=== PATIENT | female | born 2000 | race Hispanic/Latino ===

== ENCOUNTER 2024-08-01 08:18 | Emergency (ER) | payer SELFPAY ==
[~2024-08-01] VITALS: Ht 157.5 cm; Wt 51.7 kg
[2024-08-01] MEDS: 0.9%NACL 1000ML 1,551 ML IV ONE (08:45)
--- NOTE | 2024-08-01 08:45 | ERN ---
ED Note History of Present Illness Stated Complaint: FEVER, ABD PAIN Chief Complaint: Abdominal Pain Time Seen by MD: 08:29 Dictation: This is a case of 23-year-old female with past medical history of renal stones who was brought to the ER by EMS with the complaints of fever, chills, generalized body pain since yesterday night. She states that she has started experiencing fever with chills, headache, dizziness, generalized body aches and diffuse abdominal pain associated with nausea since yesterday night. She states that she has experienced similar symptoms in the past when she had renal stones. She denies chest pain, palpitations, cough, sore throat, burning sensation when urinating/increased frequency of urination, diarrhea/constipation, abnormal vaginal discharge or rashes. Her last menstrual period was on July 23, 2024. Allergies: Coded Allergies: No Known Drug Allergies (Unverified Allergy, Unknown, 08/01/24) Home Meds Active Scripts Amoxicillin/Potassium Clav (Amox Tr-K Clv 875-125 mg Tab) 875 Mg-125 Mg Tablet, 1 TAB PO BID for 10 Days, #20 TAB 0 Refills Prov:CALLY ESCALONA MD 08/01/24 Past Medical History Past Medical History: No Pertinent History Surgical History: None Review of System Dictation ROS Constitutional: No appetite loss, fevers, chills , No night sweats, No weakness, fatigue Eye: No vision change, No redness, pain or discharge ENT: No hearing loss, ear pain or discharge, No nose bleeds, No sore throat, Neck: No swelling. pain or stiffness Respiratory: No cough, shortness of breath, wheezing Cardiovascular: No chest pain,, palpitations, dyspnea, No edema Gastrointestinal: Diffuse abdominal pain, No nausea, vomiting, No diarrhea, constipation Genitourinary: No painful urination, No blood in urine, No urinary incontinence, No frequency or urgency Musculoskeletal: No joint pain, muscle pain, swelling or stiffness Neurological: No numbness, tingling, No weakness, tremors or seizures Psychiatric: : No depression, No anxiety, No sleep disturbance, No Memory changes Lymphatic: No easy bruising, No bleeding tendencies , No swollen lymph nodes A 13-point Review of Systems was assessed, all of which are negative except for HPI or as indicated above. Initial Vital Sign VS Vital Signs Date Time Temp Pulse Resp B/P (MAP) Pulse Ox O2 Delivery O2 Flow Rate FiO2 08/01/24 08:21 102.4 120 20 113/67 97 Room Air 0 08/01/24 10:08 21 Physical Exam Dictation General: Alert & Oriented, No acute distress. EENT: No conjunctival redness or discharge noted Tympanic membranes are clear, Normal hearing, Oral mucosa is moist, No pharyngeal erythema, No nasal discharge, No oral lesions. Neck: Non-tender, No jugular vein distention, No lymphadenopathy, No thyromegaly, Supple. Respiratory: Lungs are clear to auscultation, Respirations are non-labored, Breath sounds are equal, No chest wall tenderness, _. Cardiovascular: Normal rate, Normal rhythm, No murmur, Good pulses equal in all extremities, Normal peripheral perfusion, No edema. Gastrointestinal: Soft, moderate tenderness in right upper quadrant, epigastric and pelvic region, Non-distended, Normal bowel sounds, No organo megaly, _. Musculoskeletal: Normal range of motion, Normal strength, No tenderness, No swelling, No deformity, Normal gait. Integumentary: Warm, Dry, [place], Intact, No pallor, No rash. Neurologic: Alert, Oriented x4, Normal sensory, No focal defects Psychiatric: Cooperative, Appropriate mood & affect, Normal judgement, Non- suicidal. Results (Laboratory/Radiology) Laboratory/Radiology Laboratory Tests Test 08/01/24 09:00 08/01/24 09:16 08/01/24 09:50 Urine Color YELLOW (YELLOW) Urine Appearance CLOUDY (CLEAR) H Urine pH 6.0 (5.0-8.0) Urine Specific [place] 1.014 (1.001-1.031) Urine Protein 30 mg/dL (NEGATIVE) H Urine Glucose (UA) NEGATIVE mg/dL (NEGATIVE) Urine Ketones 5 mg/dL (NEGATIVE) H Urine Occult Blood SMALL (NEGATIVE) H Urine Nitrate 2+ (NEGATIVE) H Urine Bilirubin NEGATIVE mg/dL (NEGATIVE) Urine Urobilinogen 0.2 mg/dL (0.2-1.0) Urine Leukocyte Esterase 500 Edson/uL (NEGATIVE) H Urine RBC 2-5 /HPF (0-1) H Urine WBC TNTC /HPF (0-1) H Urine WBC Clumps (Auto) FEW /HPF (0-1) Urine Squamous Epithelial Cells FEW /HPF (0-2) Urine Bacteria MOD /HPF (None Seen) Urine HCG, Qualitative NEGATIVE (NEGATIVE) White Blood Count 12.1 K/uL (4.8-10.8) H Red Blood Count 3.57 MIL/uL (4.00-5.50) L Hemoglobin 10.1 g/dL (12.0-16.0) L Hematocrit 31.0 % (36-48) L Mean Corpuscular Volume 86.8 fL (79-99) Mean Corpuscular Hemoglobin 28.3 pg (27.0-33.0) Mean Corpuscular Hemoglobin Concent 32.6 g/dL (32.0-36.0) Red Cell Distribution Width 14.8 % (11.0-15.5) Platelet Count 155 K/uL (130-400) Mean Platelet Volume 11.1 fL (7.5-10.5) H Immature Granulocyte % (Auto) 0.6 % (0-1) Neutrophils (%) (Auto) 89.8 % (40.0-77.0) H Lymphocytes (%) (Auto) 4.6 % (21.0-51.0) L Monocytes (%) (Auto) 4.7 % (3.0-13.0) Eosinophils (%) (Auto) 0.1 % (0.0-8.0) Basophils (%) (Auto) 0.2 % (0.0-5.0) Neutrophils # (Auto) 10.9 K/uL (1.8-7.7) H Lymphocytes # (Auto) 0.6 K/uL (1.0-4.8) L Monocytes # (Auto) 0.6 K/uL (0.1-1.0) Eosinophils # (Auto) 0.01 K/uL (0.00-0.70) Basophils # (Auto) 0.03 K/uL (0.00-0.20) Absolute Immature Granulocyte (auto 0.07 K/uL (0-1) Nucleated Red Blood Cells 0.0 % (0.0-0.19) White Cell Morphology Comment See comments Sodium Level 141 mmol/L (136-145) Potassium Level 3.1 mmol/L (3.5-5.1) L Chloride Level 106 mmol/L (101-111) Carbon Dioxide Level 23 mmol/L (21-32) Blood Urea Nitrogen 5 mg/dL (7-18) L Creatinine 0.6 mg/dL (0.5-1.0) Glomerular Filtration Rate Calc 130 mL/min (>90) Random Glucose 115 mg/dL (70-105) H Lactic Acid Level 1.5 mmol/L (0.8-2.5) Total Calcium 7.4 mg/dL (8.5-10.1) L Total Bilirubin 0.9 mg/dL (0.2-1.0) Direct Bilirubin 0.2 mg/dL (0.0-0.3) Aspartate Amino Transf (AST/SGOT) 31 U/L (10-37) Alanine Aminotransferase (ALT/SGPT) 28 U/L (12-78) Alkaline Phosphatase 82 U/L (50-136) Total Creatine Kinase 51 U/L (21-232) Troponin I High Sensitivity < 4 ng/L (4-50) L Total Protein 6.0 g/dL (6.0-8.3) Albumin 2.8 g/dL (3.5-5.0) L Influenza Type A Antigen Negative For Type A Influenza Type B Antigen Negative For Type B SARS-CoV-2 Antigen (Rapid) PRESUMPTIVE NEGATIVE CT Scan Comment: PROCEDURE: ABD PEL WO - CT ABDOMEN/PELVIS W/O CONTRAST CT ABDOMEN/PELVIS W/O CONTRAST REASON: DIFFUSE ABDMONIAL PAIN COMPARISON: None. FINDINGS: Lung bases are clear. There are no focal liver lesions. There are normal-appearing kidneys.. Spleen and pancreas appear unremarkable. The gallbladder appears normal as well. Bowel loops appear unremarkable. This includes normal appearance of the appendix There is no evidence of free fluid or intraperitoneal air. There are no focal fluid collections. Aorta and retroperitoneum appear normal as do pelvic soft tissue structures. The anterior abdominal wall is intact. Osseous structures appear unremarkable. IMPRESSION: 1. Negative noncontrast CT abdomen and pelvis. ED Course ED Course Orders Procedure Category Date Status Time Cbc With Differential LAB 08/01/24 Complete 08: Blood Cult MAYA 08/01/24 In Process 08:29 Urinalysis Profile LAB 08/01/24 Complete 08:29 Culture Urine MAYA 08/01/24 Complete 08:29 0.9%Nacl 1000ml (Ns PHA 08/01/24 Complete 1000ml) 08:30 Creatine Kinase, Total LAB 08/01/24 Complete 08:29 Troponin I High LAB 08/01/24 Complete Sensitivity 08:29 Lactic Acid LAB 08/01/24 Complete 08:29 Basic Metabolic Panel LAB 08/01/24 Complete 08:29 ,Urine Test LAB 08/01/24 Complete 08:29 Covid19 (Sars Antigen LAB 08/01/24 Complete Rapid) 08:32 Influenza Type A & B, LAB 08/01/24 Complete Rapid 08:32 Ct Abdomen/Pelvis W/O CT 08/01/24 Resulted Contrast 08:41 Acetaminophen 500mg PHA 08/01/24 Complete Tab (Tylenol 500mg T 09:00 Hepatic Function Panel LAB 08/01/24 Complete 08:46 Ceftriaxone 1g Vial PHA 08/01/24 Complete (Rocephine 1g Inj) 11:00 Current Medications Medications (Trade) Dose Ordered Sig/Ginny Route PRN Reason Start Time Stop Time Status Last Admin Dose Admin Acetaminophen (TYLenol 500MG TAB) 500 mg ONCE ONCE PO 08/01/24 09:00 08/01/24 09:01 DC 08/01/24 08:46 Ceftriaxone Sodium (ROCEphine 1G INJ) 1 gm ONCE ONCE IVPB 08/01/24 11:00 08/01/24 11:01 DC 08/01/24 11:02 Sodium Chloride 1,551 ml @ 517 mls/hr ONCE ONCE IV 08/01/24 08:30 08/01/24 11:29 DC 08/01/24 08:45 Vital Signs Date Time Temp Pulse Resp B/P (MAP) Pulse Ox O2 Delivery O2 Flow Rate FiO2 08/01/24 11:30 98.4 84 16 118/64 98 Room Air* 0 08/01/24 10:08 99.0 92 18 112/59 98 Room Air* 0 08/01/24 08:21 102.4 120 20 113/67 97 Room Air 0 Medical Decision Making MDM MDM Potential differential diagnoses include: Gastritis Cholecystitis Influenza Pyelonephritis Assessment: I will order a CBC and CMP and administer medications according to the patient's complaint. Will order 1 Liter of LR for adequate hydration I will re-evaluate the patient after treatment and diagnostic exams have return ed to determine whether they require further testing, can be safely discharged home, or need admission for further treatment and evaluation. Given the social determinants of health affecting care, including literacy, access to medical care, prescription drug management, and [id number] drugs, I will ensure that treatment plans are tailored accordingly. Revaluation : Patient is alert and oriented. She states that she feels better. Labs WBC 12.1, urinalysis positive for leukocyte esterase indicating an infection. LFT, troponin, TCK levels are normal. CT abdomen/pelvis resulted in no acute findings. Disposition:Patient is being discharged home with Amoxiclav 875/125mg PO BID for 10 days Advised to Follow up with PCP within 2-3 days Drink plenty of fluids especially water Avoid, alcohol and spicy foods Complete antibiotic course as directed Take [id number] medications like acetaminophen and ibuprofen p.r.n. for pain Monitor for symptoms like increased fever, severe pain especially in the lower abdomen or back, blood in urine, difficulty urinating or painful urination, foul-smelling urine, shortness of breath and seek emergent medical attention in such scenario DX & DISP Disposition: Discharge Departure Impression: Primary Impression: UTI (urinary tract infection) with pyuria Additional Impression: Pyelonephritis Critical Time: 30 minutes Condition: Stable Scripts Amoxicillin/Potassium Clav (Amox Tr-K Clv 875-125 mg Tab) 875 Mg-125 Mg Tablet 1 TAB PO BID for 10 Days, #20 TAB 0 Refills Prov: CALLY ESCALONA MD 08/01/24 Referrals: NONE (PCP) ATTESTATION BY PHYSICIAN I have seen and examined the patient. I reviewed the documentation, medical decision making, and treatment plan as noted by the resident above. I agree with the findings and plan of care. KATERINE RENEE PRIYANKA MD Aug 01, 2024 08:45 KATERINE RENEE DO Aug 02, 2024 07:40
[2024-08-01] MEDS: acetaMINOPHEN 500 MG TABLET PO ONE (08:46)
[2024-08-01 09:11] LABS: APPEARANCE,URINE CLOUDY (CLEAR); BILIRUBIN,URINE NEGATIVE (NEGATIVE); COLOR,URINE YELLOW (YELLOW); GLUCOSE, URINE (UA) NEGATIVE (NEGATIVE); KETONES,URINE 5 mg/dL (NEGATIVE); LEUKOCYTE ESTERASE ,URINE 500 Leu/uL (NEGATIVE); NITRATE,URINE 2+ (NEGATIVE); OCCULT BLOOD,URINE SMALL (NEGATIVE); PROTEIN,URINE 30 mg/dL (NEGATIVE); UROBILINOGEN,URINE 0.2 mg/dL (0.2-1.0)
[2024-08-01 09:13] LABS: ADD UA MICROSCOPIC YES
[2024-08-01 09:14] LABS: HCG,QUALITATIVE URINE NEGATIVE (NEGATIVE)
[2024-08-01 09:26] LABS: BASOPHILS # (AUTO) 0.03 K/uL (0.00-0.20); BASOPHILS % (AUTO) 0.2 % (0.0-5.0); EOSINOPHILS # (AUTO) 0.01 K/uL (0.00-0.70); EOSINOPHILS % (AUTO) 0.1 % (0.0-8.0); IMMATURE GRANULOCYTE ABSOLUTE 0.07 K/uL (0-1); LYMPHOCYTES # (AUTO) 0.6 K/uL (1.0-4.8); LYMPHOCYTES % (AUTO) 4.6 % (21.0-51.0); MEAN CORPUSCULAR HEMOGLOBIN 28.3 pg (27.0-33.0); MEAN CORPUSCULAR HGB CONC 32.6 g/dL (32.0-36.0); MEAN CORPUSCULAR VOLUME 86.8 fL (79-99); MONOCYTES # (AUTO) 0.6 K/uL (0.1-1.0); MONOCYTES % (AUTO) 4.7 % (3.0-13.0); NEUTROPHILS # (AUTO) 10.9 K/uL (1.8-7.7); NEUTROPHILS % (AUTO) 89.8 % (40.0-77.0); PLATELET COUNT (AUTO) 155 K/uL (130-400); RED BLOOD CELL COUNT(AUTO) 3.57 MIL/uL (4.00-5.50); RED CELL DISTRIBUTION WIDTH 14.8 % (11.0-15.5); WHITE BLOOD COUNT (AUTO) 12.1 K/uL (4.8-10.8)
[2024-08-01 09:44] LABS: CREATININE 0.6 mg/dL (0.5-1.0); POTASSIUM 3.1 mmol/L (3.5-5.1)
[2024-08-01 09:46] LABS: BACTERIA,URINE MOD /HPF (None Seen); MUCUS,URINE RARE LPF (None Seen); SQUAMOUS EPITHELIAL CELL,UR FEW /HPF (0-2); WBC CLUMP FEW /HPF (0-1); WBC,URINE TNTC /HPF (0-1)
[2024-08-01 09:49] LABS: ALBUMIN 2.8 g/dL (3.5-5.0); BILIRUBIN,DIRECT 0.2 mg/dL (0.0-0.3); BILIRUBIN,TOTAL 0.9 mg/dL (0.2-1.0)
[2024-08-01 10:20] LABS: INFLUENZA TYPE A Negative For Type A (NEGATIVE); INFLUENZA TYPE B Negative For Type B (NEGATIVE)
[2024-08-01 10:21] LABS: COVID19 (SARS ANTIGEN RAPID) PRESUMPTIVE NEGATIVE (NEGATIVE)
--- NOTE | 2024-08-01 10:29 | HMCIMG ---
CT ABDOMEN/PELVIS W/O CONTRAST REASON: DIFFUSE ABDMONIAL PAIN COMPARISON: None. FINDINGS: Lung bases are clear. There are no focal liver lesions. There are normal-appearing kidneys.. Spleen and pancreas appear unremarkable. The gallbladder appears normal as well. Bowel loops appear unremarkable. This includes normal appearance of the appendix There is no evidence of free fluid or intraperitoneal air. There are no focal fluid collections. Aorta and retroperitoneum appear normal as do pelvic soft tissue structures. The anterior abdominal wall is intact. Osseous structures appear unremarkable. IMPRESSION: 1. Negative noncontrast CT abdomen and pelvis. CT was performed with one or more following dose reduction techniques: automated exposure control, adjustment of the mA and kv according to patient's size, or use of a iterative reconstruction technique.
[2024-08-01] MEDS ORDERED: AMOX1TAB16 PO (10:54)
[2024-08-01] MEDS: cefTRIAXone 1G VIAL IVPB ONE (11:02)
[2024-08-01 11:30] VITALS: BP 118/64; PULSE 84; RESP 16; TEMP 98.4; O2SAT 98
== END 2024-08-01 11:47 | disposition home or self-care (01) ==
LOC: EDH 08:18
DX: N39.0 Urinary tract infection, site not specified (principal); N12 Tubulo-interstitial nephritis, not specified as acute or chronic; Z20.822 Contact with and (suspected) exposure to COVID-19
CPT/HCPCS: 99285; 74176; 96374; 96361; 87426; 82550; 80076; 84484; 80048; 85025; 87040 ×2; 87086 ×3; 87186 ×2; 87804 ×2; 83605; 81001; 81025; 36415; J7030; J0696